=== PATIENT | male | born 1995 | race Hispanic/Latino ===

== ENCOUNTER 2019-04-20 00:24 | Emergency (ER) | payer OTHER ==
[~2019-04-20] VITALS: Ht 165.1 cm; Wt 68.0 kg
[2019-04-20] MEDS ORDERED: CEPHALEXIN 500 MG CAP PO SCH (00:45)
--- NOTE | 2019-04-20 00:45 | NUR ---
digital block completed by Dr Loomis.
--- NOTE | 2019-04-20 01:34 | Diagnostic Imaging Report ---
X-ray right finger 3 views HISTORY: Pain. COMPARISON: None available. FINDINGS: Bones: Acute comminuted fracture of the second digit distal tuft. Osseous alignment is within normal limits. Joints: The joint spaces are well-maintained. Soft tissues: Soft tissue swelling irregularity and defect at the aspect of the second digit. Subcutaneous emphysema tracks along the molar aspect of the second digit. IMPRESSION: Acute comminuted fracture of the second digit distal tuft with overlying soft tissue defect. Possibly an open fracture. Signed by: Vinayak Spain DO on 04/20/2019 1:30 AM
[2019-04-20] MEDS ORDERED: CIPROFLOXACIN 500 MG TAB ONE (01:47)
[2019-04-20] MEDS ORDERED: CIPROFLOXACIN 500 MG TAB PO SCH (09:00)
== END 2019-04-20 02:00 | disposition home or self-care (01) ==
LOC: FSED 00:24
DX: S61.210A Laceration without foreign body of right index finger without damage to nail, initial encounter (principal); W45.8XXA Other foreign body or object entering through skin, initial encounter; Y99.0 Civilian activity done for income or pay
CPT/HCPCS: 99283

== ENCOUNTER → 2019-04-26 | Day surgery (SDC) | payer OTHER ==
[~2019-04-26] MED LIST: BACITRACIN 50,000 UNIT VIAL ONE; BUPIVACAINE HCL 0.5% INJ 30 ML VIAL INJ ONE; CEFAZOLIN SOD 1 GM/NS 50ML 50 ML IV ONE; DEXAMETHASONE SOD PHOS INJ 4 MG/ML VIAL ONE; FENTANYL CITRATE/PF 100MCG/2 ML INJ ONE; KETOROLAC TROMETHAMINE 30 MG/ML VIAL ONE; LIDOCAINE HCL 2% LOCAL INJ 5 ML SDV VIAL INJ ONE; MIDAZOLAM HCL 2 MG/2 ML VIAL ONE; MUPIROCIN 2% OINT 22 GM TUBE ONE; ONDANSETRON HCL INJ 2MG/ML 2ML 2 MG/ML VIAL ONE; PROPOFOL IV EMULSION 10 MG/ML 20 ML VIAL ONE; SEVOFLURANE INHAL SOLN 250 ML PEN BTL ONE
--- OUTSIDE RECORDS SUMMARY | 2019-04-26 06:03 | XMS REPORT ---
Author Author [facility] Address Unknown Phone Unavailable Care Team Providers Care Fig Washer Name Role Phone ANANDA VIRK Unavailable Unavailable Problems This patient has no known problems. Allergies, Adverse Reactions, Alerts This patient has no known allergies or adverse reactions. Medications This patient has no known medications. Results Test Description Test Time Test Comments Text Results Atomic Results Result Comments FINGER RT - HOPD 2019-04-20 01:29:00 [facility] [address] [place] [address] Patient Name: SYDNEY MURRAY MR #: [id number] : 1995 Age/Sex: 24/M Req #: [id number] Adm Physician: Ordered by: ANANDA VIRK DO Report #: [id number] Location: [facility] Room/Bed: Procedure: [id number] HOPD/JOLIE RT - HOPD Exam Date: 04/20/19 Exam Time: 0115 REPORT STATUS: Signed X-ray right finger 3 views HISTORY: Pain. COMPAR YOBANI: None available. FINDINGS: Bones: Acute comminuted fracture of the second digit distal tuft. Osseous alignment is within normal limits. Joints: The joint spaces are well-maintained. Soft tissues: Soft tissue swelling irregularity and defect at the aspect of the second digit. Subcutaneous emphysema tracks along the molar aspect of the second digit. IMPRESSION: Acute comminuted fracture of the second digit distal tuft with overlying soft tissue defect. Possibly an open fracture. Signed by: Vinayak Spain DO on 04/20/2019 1:30 AM Dictated By: VINAYAK SPAIN DO 9 Transcribed By: ROMAINE on 04/20/19129 COPY TO: ANANDA VIRK DO
[2019-04-26 10:20] VITALS: BP 116/84
--- NOTE | 2019-04-26 13:42 | Operative Report ---
DATE OF PROCEDURE: 04/26/2019 SURGEON: Alpesh Waldrop MD PREOPERATIVE DIAGNOSES: 1. Crush injury, right index finger. 2. Open fracture, distal phalanx. POSTOPERATIVE DIAGNOSES: 1. Crush injury, right index finger. 2. Open fracture, distal phalanx. PROCEDURES: 1. Open treatment of distal phalanx fracture. 2. Soft tissue debridement and repair 3.5 cm. 3. Nail bed repair with placement of nail stent. ANESTHESIA: General. HISTORY: The patient is a 24-year-old right-hand dominant male, who over a week ago caught his right index finger between a chain and gear on a piece of machinery. The patient was seen at a local area emergency room. He was also seen by Occupational Medicine. No attempted any repair of the soft tissues or treatment of the fracture was done. The patient was seen by me several days later. We requested that the insurance company allow us to perform the surgery in an urgent fashion, as this was an open fracture. There was significant delay in getting the patient approved for surgery. He now presents for delayed treatment of open fracture distal phalanx with soft tissue disruption. Risks, benefits, and alternatives of treatment were discussed with the patient and he is prepared to undergo the procedure as outlined. PROCEDURE IN DETAIL: The patient was marked preoperatively in the holding area and he was brought to the operating theater. After the induction of adequate general anesthesia, he was prepped and draped in a supine position and a time-out was performed. The right upper extremity was exsanguinated and tourniquet was inflated to a pressure of 250 mmHg. The wound was near circumferential transversely at the distal 3rd of the distal phalanx. The soft tissues are sharply debrided of all devitalized tissue. The wound was opened up and the small pieces of the distal phalanx, which were comminuted are then removed and then discarded. The wound was irrigated with bacteriostatic saline and then the soft tissues are repaired from the radial aspect of the nail fold across the volar aspect of the finger to the ulnar side of the finger. The length of the repair measures approximately 3.5 cm. Once the distal phalanx has been attended and the soft tissue has been attended too, the nail bed was sharply debrided of all devitalized tissue and then a nail bed repair was carried out using 6-0 chromic in an interrupted fashion. An artificial nail stent was placed beneath the eponychial fold, then it was sutured proximally and distally using 5-0 nylon suture. At this point, the digital block was performed with 0.5% Marcaine plain at the base of the right index finger. The tourniquet was deflated. All fingers pinked up nicely and of note, was at the distal aspect of the right index finger as well vascularized with the 2-second refill. Bactroban ointment and Xeroform gauze were applied to the index finger. Sterile dressing was applied and held in place with loosely wrapped Coban. The patient tolerated the procedure well and was brought to recovery room in satisfactory condition and discharged with a postoperative instruction sheet as well as a followup appointment. MD MELIDA Barahona/SATNAM /[id number]
== END | disposition home or self-care (01) ==
LOC: OR 06:00
PROVIDERS: ATTEND Plastic Surgery
DX: S67.190A Crushing injury of right index finger, initial encounter (principal); S62.630B Displaced fracture of distal phalanx of right index finger, initial encounter for open fracture; T81.30XA Disruption of wound, unspecified, initial encounter; W31.89XA Contact with other specified machinery, initial encounter
CPT/HCPCS: 11760; 26765; J0690; J1100; J1885; J2001; J2250; J2405; J2704; J3010